=== PATIENT | female | born 1960 | race Caucasian/White ===

== ENCOUNTER → 2016-10-02 | Outpatient (CLI) | payer BC ==
--- NOTE | 2016-10-02 20:18 | CT ---
EXAMINATION TYPE: CT wrist RT wo con DATE OF EXAM: 10/02/2016 COMPARISON: NONE HISTORY: Right wrist injury [address] DLP: 167.00 mGycm Automated exposure control for dose reduction was used. FINDINGS: There is intra-articular comminuted transverse fracture of the distal radial metaphysis. This is 1 cm from the wrist joint. Fracture line extends to the radiocarpal joint. There is narrowing of radiocar pal joint space. The carpal bones are intact. There is some widening of the scapholunate joint space. The distal ulna is intact. There is mild impaction of the radius fracture. Fragments are u p to 3 to 4 mm. IMPRESSION: MILDLY IMPACTED COMMINUTED INTRA-ARTICULAR FRACTURE OF THE DISTAL RADIUS. SLIGHT WIDENING OF THE SCAP HOLUNATE JOINT SPACE CONSISTENT WITH SOME LIGAMENTOUS TEAR.
== END | disposition home or self-care (01) ==
LOC: RADCTMAIN 18:35
PROVIDERS: ATTEND Orthopaedic Surgery
DX: S52.571D Other intraarticular fracture of lower end of right radius, subsequent encounter for closed fracture with routine healing (principal)

== ENCOUNTER → 2020-10-23 | Outpatient (CLI) | payer BC ==
--- NOTE | 2020-10-26 13:34 | MM ---
Reason for exam: screening (asymptomatic). Last mammogram was performed 5 years ago. History: Patient is postmenopausal. Physical Findings: A clinical breast exam by your physician is recommended on an annual basis and results should be correlated with mammographic findings. MG Screening Mammo w CAD Bilateral CC and MLO view(s) were taken. Prior study comparison: October 18, 2015, bilateral MG 3d screening mammo w/cad. There are scattered fibroglandular densities. Right lateral density at posterior depth on CC. Left density slightly lateral middle depth. Left density lateral posterior depth on CC. ASSESSMENT: Incomplete: need additional imaging evaluation, BI-RAD 0 RECOMMENDATION: Special view mammogram of both breasts. If lesion persists on supplemental views, image directed ultrasound is recommended. [facility] will attempt to contact patient to return for supplemental views and ultrasound if indicated.
== END | disposition home or self-care (01) ==
LOC: RADMAMWWP 12:44
PROVIDERS: ATTEND Obstetrics & Gynecology
DX: Z12.31 Encounter for screening mammogram for malignant neoplasm of breast (principal); Z78.0 Asymptomatic menopausal state
CPT/HCPCS: 77067

== ENCOUNTER → 2021-03-12 | Outpatient (CLI) | payer BC ==
--- NOTE | 2021-03-12 12:26 | MM ---
Reason for exam: additional evaluation requested from abnormal screening. Last mammogram was performed 5 months ago. History: Patient is postmenopausal. Physical Findings: Nurse did not find any significant physical abnormalities on exam. MG 3D Work Up W/Cad DENNIS Bilateral CC and MLO view(s) were taken. Prior study comparison: October 23, 2020, bilateral MG screening mammo w CAD. October 18, 2015, bilateral MG 3d screening mammo w/cad. There are scattered fibroglandular densities. There is no discrete abnormality. These results were verbally communicated with the patient and result sheet given to the patient on 03/12/21. ASSESSMENT: Negative, BI-RAD 1 RECOMMENDATION: Routine screening mammogram of both breasts in 1 year.
== END | disposition home or self-care (01) ==
LOC: RADMAMWWP 02-15 08:57
PROVIDERS: ATTEND Obstetrics & Gynecology
DX: N64.89 Other specified disorders of breast (principal); Z78.0 Asymptomatic menopausal state
CPT/HCPCS: 77062; 77066